=== PATIENT | male | born 1955 | race Caucasian/White ===

== ENCOUNTER 2022-06-27 06:24 | Day surgery (SDC) | payer OTHER, SELFPAY ==
[2022-06-25 13:59] VITALS: BMI 25.8
[2022-06-27 06:47] VITALS: BP 128/88; PULSE 85; RESP 18; TEMP 36.1; O2SAT 96
[2022-06-27] MEDS: sodium chloride 0.9% 1,000 ML 30 ML IV (06:54)
--- NOTE | 2022-06-27 06:57 | W.PM.OPSFHP ---
Same Day Surgery H&P Indication for Procedure/HPI DATE OF PROCEDURE: June 27, 2022 CHIEF COMPLAINT/INDICATIONFOR SURGICAL PROCEDURE: Colon polyps PREOP DIAGNOSIS: History of colon polyps PLANNED PROCEDURE: Operation Date: 06/27/22 08:00 Proposed Procedures p Colonoscopy 08222,Z86.010(Not Applicable) - Royal Moore MD This is a pleasant 66 years old gentleman referred to my practice to discuss colonoscopy.? Last colonoscopy was 5 years ago and found to have polyps.? Denies bleeding per rectum or history of colon cancer. Patient comes today for his procedure. ROS All systems have been reviewed negative except as for the above or per problem list. Medications/Allergies* Home Medications Medication Instructions Recorded Confirmed Type multivitamin 1 tab PO DAILY 06/25/22 06/27/22 History omega-3 fatty acids 1,000 mg PO DAILY 06/25/22 06/27/22 History Allergies/Adverse Reactions Allergy/AdvReac Type Severity Reaction Status Date / Time No Known Allergies Allergy Verified 06/27/22 06:58 Current Medications: Generic Name Dose Route Start Last Admin Trade Name Freq PRN Reason Stop Dose Admin Sodium Chloride 1,000 mls @ 30 mls/hr 06/27/22 06:45 06/27/22 06:54 Sodium Chloride 0.9% IV 06/28/22 06:44 30 mls/hr .Q24H REJI Administration Pertinent History/Comorbid Conditions* Medical History (Updated 04/25/22 @ 06:52 by Royal Moore MD) Hx of colonic polyps Family History (Updated 04/24/22 @ 14:06 by ISAC Alvarado) Denies family history of Anesthesia complication Social History Smoking and tobacco status: never smoked Pertinent Exam Findings alert, oriented x 3, regular rate & rhythm and procedure specific exam findings (Abdominal exam nontender nondistended soft) Recommendations Surgery/Procedure today (Colonoscopy with possible biopsy) Coding Level of Care Code 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
--- NOTE | 2022-06-27 07:00 | ANES.PREANE2 ---
Pre-Anesthetic Assessment Height/Weight: Height 1.73 m Weight 77.111 kg Temp Pulse Resp BP Pulse Ox O2 Del Method 97.0 F L 85 18 128/88 96 06/27/22 06:47 06/27/22 06:47 06/27/22 06:47 06/27/22 06:47 06/27/22 06:47 06/27/22 06:47 Preop Diagnosis: History of colon polyps Operation Date: 06/27/22 08:00 Proposed Procedures p Colonoscopy 79694,Z86.010(Not Applicable) - Royal Moore MD Familial anesthetic complications: none Was Beta Ilia taken within 24 hours: N/A Was Clonidine taken within 24 hours: N/A Last intake: Intake Last Liquid Date 06/26/22 Last Liquid Time 21:30 Last Solid Date 06/25/22 Last Solid Time 19:00 Last Intake: 21:30 Social Tobacco and No alcohol Exam alert, oriented x 3, clear to auscultation bilaterally and regular rate & rhythm Airway Submandibular: within normal limits Cervical ROM: within normal limits Mallampati: Class I Dentition: full Pulmonary None reported CV/HEM None reported None reported Hepatic None reported GI None reported Metabolic None reported Musc/skel Lower Back Pain Neuropsych None reported Anesthetic Plan ASA status: 1 Anesthesia: MAC Medications/Allergies Home Medications Medication Instructions Recorded Confirmed Last Taken Type multivitamin 1 tab PO DAILY 06/25/22 06/27/22 06/25/22 History omega-3 fatty acids 1,000 mg PO DAILY 06/25/22 06/27/22 06/25/22 History Allergies Allergy/AdvReac Type Severity Reaction Status Date / Time No Known Allergies Allergy Verified 06/27/22 06:58 Current Medications Generic Name Dose Route Start Last Admin Trade Name Freq PRN Reason Stop Dose Admin Sodium Chloride 1,000 mls @ 30 mls/hr 06/27/22 06:45 06/27/22 06:54 Sodium Chloride 0.9% IV 06/28/22 06:44 30 mls/hr .Q24H REJI Administration PFSH Anesthesia Medical History (Updated 04/25/22 @ 06:52 by Royal Moore MD) Hx of colonic polyps Family History (Updated 04/24/22 @ 14:06 by ISAC Alvarado) Denies family history of Anesthesia complication Social History Smoking and tobacco status: never smoked Data Anesthesia Cardiac Studies: No Data to Display
[2022-06-27 08:30] VITALS: BP 135/75; PULSE 83; RESP 12; TEMP 36.1; O2SAT 94
--- NOTE | 2022-06-27 08:33 | ANE.PACU2 ---
Inpatient post-anesthesia follow up: Airway intact: Yes Vital signs: Temperature 97 F Pulse Rate 83 Respiratory Rate 12 Blood Pressure 135/75 Pulse Oximetry 94 Oxygen Delivery Me thod Room Air Oxygen Flow Rate Fraction of Inspir ed Oxygen Hydration adequate: Yes Nausea and vomiting: No Pain level: 1 Mental status: Baseline
[2022-06-27 08:44] VITALS: BP 126/80; PULSE 59; RESP 18; O2SAT 96
== END 2022-06-27 08:58 | disposition home or self-care (01) ==
PROVIDERS: Visit Provider Surgery
PROC: 0DJD8ZZ Inspection of Lower Intestinal Tract, Via Natural or Artificial Opening Endoscopic (ICD-10-PCS; CPT 45378; principal; 2022-06-27 08:00)
DX: Z86.010 Personal history of colon polyps (principal)
CPT/HCPCS: 45378; J2704; J7030